=== PATIENT | male | born 1980 | race Caucasian/White ===

== ENCOUNTER 2019-02-11 07:38 | Day surgery (SDC) | payer OTHER ==
[~2019-02-11 07:38] MED LIST: Bupivacaine 0.5% 50 ML MDV ONE; Bupivacaine 0.5%/EPINEPHrine 1:200,000 50 ML MDV ONE; Dextrose 5%-Lactated Ringers 1,000 ML IV SCH; Lidocaine 1% with EPINEPHrine 1:100,000 50 ML MDV ONE; ceFAZolin 2 GM in Premix Bag 1 BAG IV ONE
[2019-02-11] MEDS ORDERED: Dextrose 5%-Lactated Ringers 1,000 ML IV SCH (08:15)
[2019-02-11] MEDS ORDERED: Propofol 200 MG/20 ML SDV ONE ×2 (08:40→10:04)
[2019-02-11] MEDS ORDERED: fentaNYL 100 MCG/2 ML SDV ONE (08:40)
[2019-02-11] MEDS ORDERED: Midazolam 1 MG/ML 2 ML SDV ONE (08:40)
[2019-02-11] MEDS ORDERED: ceFAZolin 2 GM in Premix Bag 1 BAG IV ONE (08:45)
[2019-02-11] MEDS ORDERED: Ketorolac 60 MG/2 ML SDV ONE (10:36)
[2019-02-11] MEDS ORDERED: Dexamethasone 4 MG/ML SDV ONE (10:36)
[2019-02-11] MEDS ORDERED: Ondansetron 4 MG/2 ML SDV ONE (10:36)
[2019-02-11] MEDS ORDERED: Acetaminophen/oxyCODONE 325-5 MG Tab PO PRN (11:27)
--- NOTE | 2019-02-17 13:15 | OR ---
DATE OF PROCEDURE: 02/11/2019 PREOPERATIVE DIAGNOSIS: Left inguinal hernia. POSTOPERATIVE DIAGNOSES: 1. Incarcerated left inguinal hernia. 2. Left ilioinguinal nerve at risk for scar entrapment. OPERATIVE PROCEDURES: 1. Open repair of incarcerated left inguinal hernia with mesh-plug technique. 2. Excision of portion of left ilioinguinal nerve. ANESTHESIA: Local plus IV sedation. INDICATION FOR PROCEDURE: This is a 38-year-old male presenting with increasingly symptomatic left inguinal hernia. After preoperative evaluation and discussion, he wished to proceed with repair using mesh-plug technique. Potential risks including bleeding, infection, chronic pain following the procedure with the mesh becoming infected or the hernia recurring over time were all reviewed, and the patient wishes to proceed. We will quite often divide the ilioinguinal nerve and/or iliohypogastric nerves to avoid chronic pain as the flat portion of the mesh system tends to lay over these, resulting in painful scar formation, was reviewed and that this would result in an area of anesthesia around the incision. Given this, the patient wishes to proceed. DETAILS OF PROCEDURE: The patient was taken to the operating room and placed in a supine position. After IV sedation was administered, the abdomen and groin areas were prepped and draped, and anesthetized with some 1% lidocaine mixed with Marcaine. A standard left inguinal incision was made and carried down through the skin and subcutaneous tissue through the external oblique aponeurosis. Subaponeurotic flaps were then raised superiorly and inferiorly. On dissection, the patient was noted to have 2 components to his hernia. The largest was indirect component, which contained some incarcerated fat. 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 The sac was opened and then this dissected free. The sac was then reclosed to be turned inward. The patient also then had a significant defect in the inguinal floor medially consistent with a direct component to the hernia as well. At this point, transversalis fascia in the medial component was incised and a large mesh plug was then placed into the defect. This was affixed initially to the [place] ligament with titanium tacking screws to the underside of the conjoint tendon medially, superiorly, and laterally with horizontal mattress stitches of 0 Vicryl stitch. The indirect component was then treated by means of placement of a medium mesh plug into that defect, which was then affixed with some 0 Vicryl stitch as well. At that point, the ilioinguinal nerve was identified and the flat portion of the mesh-plug system would clearly be lying over its course. The portion of this nerve was then excised down to the lateral- most aspect of the incision. Flat portion of the mesh-plug system was then placed across the inguinal floor and affixed lateral to the cord structures with some 3-0 Vicryl stitch and the pubic tubercle with a titanium tacking screw. At this point, external oblique aponeurosis was approximated with some 3-0 Vicryl stitch as was the subcutaneous tissue. The skin was closed with 4-0 Vicryl subcuticular stitch. Dressing was applied. The patient was taken to the recovery room in a satisfactory condition. Ethan Washington MD /[id number]
== END 2019-02-11 13:01 | disposition home or self-care (01) ==
LOC: JP.SDS 07:38
PROVIDERS: ATTEND Surgery
DX: K40.30 Unilateral inguinal hernia, with obstruction, without gangrene, not specified as recurrent (principal)
CPT/HCPCS: 49507; 64772; A9270; C1713; C1781; J0690; J1100; J1885; J2250; J2405; J2704; J3010; J3490; J7042; 88302